=== PATIENT | female | born 1995 | race Caucasian/White ===

== ENCOUNTER 2023-09-22 05:01 | Emergency (ER) | payer SELFPAY ==
[~2023-09-22] VITALS: Ht 165.1 cm; Wt 68.0 kg
[2023-09-22 05:12] VITALS: O2SAT 98
[2023-09-22] MEDS ORDERED: LORAZEPAM 2MG/ML CPJ IM ONE (05:30)
[2023-09-22] MEDS ORDERED: OLANZAPINE 10 MG/VIAL IM ONE (05:30)
[2023-09-22 08:04] LABS: CLARITY URINE CLOUDY (CLEAR); COLOR URINE YELLOW (YELLOW); GLUCOSE URINE NEGATIVE (NEGATIVE); KETONES URINE TRACE (NEGATIVE); LEUKOCYTE ESTERASE URINE 3+ (NEGATIVE); NITRITE URINE NEGATIVE (NEGATIVE); OCCULT BLOOD URINE TRACE (NEGATIVE); PROTEIN URINE NEGATIVE (NEGATIVE); SPECIFIC GRAVITY URINE 1.004 (1.005-1.030); UROBILINOGEN URINE 0.2 E.U./dL (0.2-1.0)
[2023-09-22 08:34] LABS: SQUAMOUS EPITHELIAL CELL URINE 2+ /lpf (RARE/1+)
[2023-09-22 08:36] LABS: BACTERIA URINE 3+; RBC URINE 0-2 /hpf (0-2); TRICHOMONAS URINE 1+; WBC URINE 50-100 /hpf (0-2)
[2023-09-22 08:59] LABS: *AMPHETAMINES SCREEN URINE PRESUMPTIVE POSITIVE (NEGATIVE); *BARBITURATES SCREEN URINE NEGATIVE (NEGATIVE); *BENZODIAZEPINES SCREEN URINE NEGATIVE (NEGATIVE); *COCAINE SCREEN URINE NEGATIVE (NEGATIVE); CANNABINOID URINE SCREEN NEGATIVE (NEGATIVE); ECSTASY MDMA SCREEN URINE NEGATIVE (NEGATIVE); METHADONE URINE SCREEN Neg (NEGATIVE); OPIATES URINE SCREEN NEGATIVE (NEGATIVE); PHENCYCLIDINE URINE SCREEN NEGATIVE (NEGATIVE)
[2023-09-22] MEDS ORDERED: CEPH500T PO (12:49)
[2023-09-22 13:00] VITALS: BP 118/71; PULSE 70; RESP 18; TEMP 97.8
== END 2023-09-22 15:05 | disposition home or self-care (01) ==
LOC: ER 05:21 → EDBD 05:21 → ER 15:05
DX: N39.0 Urinary tract infection, site not specified (principal); F15.10 Other stimulant abuse, uncomplicated
CPT/HCPCS: 80305; 81003; 81025; 87086; 96372; 99284; J3490; J2060; Z7610